=== PATIENT | male | born 1995 | race Caucasian/White ===

== ENCOUNTER 2020-03-15 07:50 | Observation (INO) ==
--- NOTE | 2020-03-14 15:03 | Anesthesiology Consultation ---
Date of Service March 14, 2020 Assessment & Plan (1) Encounter for pre-operative examination: Chart Review Chart Review: Acceptable Risk for Surgery (pending anesthesia evaluation AM of surgery ) and Patient NOT seen in Pre Admission Testing Per nursing assessment 03/14/20, pt resides in [facility]. Did travel to [place] 03/13/20 for small family get together- did social distance and wear mask. Pt's daughter and had negative Covid tests (done for preop purposes) recently. No known Covid positive contacts. No current Covid related symptoms. Pt was add on case for tomorrow- did not have Covid testing- pt can proceed without Covid testing but will need reassessed by anesthesia DOS. Pt will need rule. ORIF right 2nd, 3rd, and 4th toe= Done under GA with LMA #5. No issues noted on anesthesia record History Surgery Operation Date: 03/15/20 08:50 Proposed Procedures p Right Foot Incision Irrigation and Debridement - Vinayak Benitez s Possible Hardward Removal or Revision - Vinayak Benitez Height/Weight Height: 5 ft 10 in Weight: 77.111 kg Allergies Allergy/AdvReac Type Severity Reaction Status Date / Time No Known Allergies Allergy Mild Verified 03/14/20 15:34 Medications Home Medications Medication Instructions Recorded Confirmed Last Taken amoxicillin-pot clavulanate 1 tab PO BID #20 tab 03/13/20 03/14/20 Unknown [Augmentin] buprenorphine-naloxone [Suboxone] 2 - 2.5 film BUCCAL DAILY 03/14/20 03/14/20 Unknown oxycodone-acetaminophen 5 mg-325 1 - 2 tab PO Q6H PRN #20 tab 03/14/20 03/14/20 Unknown mg tablet Past Medical History Medical History Metatarsal fracture 02/15/20- s/p surgical repair Opiate addiction Past Family History Family History Father Diabetes Other Stroke Past Surgical History Surgical History H/O hand surgery RT HAND (BOXER FRACTURE REPAIR) H/O hernia repair INGUINAL History of open reduction and internal fixation (ORIF) procedure 2nd, 3rd, 4th toes (02/24/20) (HARDWARE INFECTION/REASON FOR PRESENT SURGERY) [place] teeth removed Social History Smoking Status: Never smoker tobacco type: cigarettes and e-cigarettes Hx Alcohol Use: Yes Alcohol type: beer alcohol intake frequency: a few times a month substance use type: former substance user and heroin Substance Use Type Other:: OPIATE ADDICT AND IV HEROIN (LAST USED 2 YEARS AGO) Testing Laboratory Results Laboratory Tests 03/13/20 03/13/20 00:02 00:02 WBC 12.54 H Hgb 12.7 L Hct 36.9 L Plt Count 192 Sodium 135 L Potassium 3.8 Chloride 103 Carbon Dioxide 28 BUN 17 Creatinine 0.80 Glucose 100 H
[~2020-03-15 07:50] MED LIST: EPINEPHrine INJ 1 MG/ML AMP ONE; LR 15ML/HR IV SCH; ROPIVACAINE 0.5% 5 MG/ML 30 ML VIAL ONE
[2020-03-15] MEDS ORDERED: LABETALOL HCL IV 5 MG/ML 20ML IV PRN (08:06)
[2020-03-15] MEDS ORDERED: ATROPINE SULFATE 0.1 MG/ML 10ML SYR IV PRN (08:06)
[2020-03-15] MEDS ORDERED: HYDROmorphone INJ 1 MG/ML SYRINGE IV PRN (08:06)
[2020-03-15] MEDS ORDERED: ONDANSETRON INJ 2 MG/ML 2 ML VIAL IV PRN (08:06)
[2020-03-15] MEDS ORDERED: MEPERIDINE HCL 25 MG/ML CARP/VIAL IV PRN (08:06)
[2020-03-15] MEDS ORDERED: ePHEDrine sulfate 50 MG/ML AMP IV PRN (08:06)
[2020-03-15] MEDS ORDERED: PHENYLEPHRINE 100MCG/ML 5ML SYR IV PRN (08:06)
[2020-03-15] MEDS ORDERED: VANCOMYCIN CONSULT ACTIVE PRN ×2 (08:37→17:58)
[2020-03-15] MEDS ORDERED: VANCOMYCIN HCL 1,500 MG in SODIUM CHLORIDE 0.9% 500 ML IV ONE (08:37)
--- NOTE | 2020-03-15 08:37 | History & Physical Bridge Note ---
Date of Service March 15, 2020 History & Physical Bridge Note I have examined the patient, reviewed the History & Physical and in the interval since the performance of the History & Physical I have noted the following changes of clinical significance: no changes noted
[2020-03-15] MEDS ORDERED: MIDAZOLAM HCL 1 MG/ML 2ML VIAL ONE (08:59)
[2020-03-15] MEDS ORDERED: BUPIVACAINE 0.5 % 5 MG/1 ML MPF 30ML VIAL ONE (08:59)
[2020-03-15] MEDS ORDERED: BACITRACIN INJ 50,000 UNIT VIAL ONE (08:59)
[2020-03-15] MEDS ORDERED: PROPOFOL IV EMULSION 10 MG/ML 20 ML VIAL IV ONE (08:59)
[2020-03-15] MEDS ORDERED: fentaNYL citrate 100 MCG/2 ML VIAL ONE ×4 (08:59→10:40)
[2020-03-15] MEDS ORDERED: LIDOCAINE HCL 2% 2 ML VIAL/AMP(20MG/ML) INFIL ONE (08:59)
[2020-03-15] MEDS ORDERED: VANCOMYCIN HCL 1 GM/270 ML BAG ONE (09:39)
[2020-03-15] MEDS ORDERED: ONDANSETRON INJ 2 MG/ML 2 ML VIAL ONE (09:58)
--- NOTE | 2020-03-15 10:26 | Post Operative Brief Note ---
PG Immediate Post Op with CF Date of Surgery March 15, 2020 Pre & Post Diagnosis Operation Date: 03/15/20 08:50 Pre-Op Diagnosis: Cellulitis of Right Foot Post-Op Diagnosis: Cellulitis of Right Foot I identified the patient and participated in the time-out.: Yes Procedure Operation Date: 03/15/20 08:50 Actual Procedures p Right Foot Incision Irrigation and Debridement(Right) - Vinayak Benitez s Right Foot 3rd and 4th Metatarsal Pin Removal(Right) - Vinayak Benitez Surgeon Vinayak Benitez Technology Infusion Specialist Eduardo Pfeiffer PA-C Estimated Blood Loss 5 Findings Consistent with Post-Op Diagnosis Specimens Specimen Description: Microbiology #1- Right forefoot wound Microbiology #2- Right forefoot wound Drains Colon Drain Anesthesia Type General Complications none Disposition Accompanied Patient To Recovery: No Disposition: Recovery Room
--- NOTE | 2020-03-15 10:37 | Operative Report ---
PG Post Operative Report Pre & Post Diagnosis Operation Date: 03/15/20 08:50 Pre-Op Diagnosis: Cellulitis of Right Foot Post-Op Diagnosis: Cellulitis of Right Foot I identified the patient and participated in the time-out.: Yes Procedure Operation Date: 03/15/20 08:50 Actual Procedures p Right Foot Incision Irrigation and Debridement(Right) - Vinayak Benitez s Right Foot 3rd and 4th Metatarsal Pin Removal(Right) - Vinayak Benitez Surgeon Vinayak Benitez Clothes Presser Eduardo Pfeiffer PA-C Estimated Blood Loss 5 Findings Consistent with Post-Op Diagnosis There was purulent material through the fibular side wound on the forefoot. The tibial sided wound was without obvious signs of infection in the fracture site of the second ray did not appear to be involved. Pin was left in place in the second ray. The pins in the third and fourth rays were removed due to obvious infections at fibular sided wound. Specimens Deep swab cultures x2 of the fibular sided wound. Anesthesia Type General Complications none Disposition Accompanied Patient To Recovery: No Disposition: Recovery Room Indications 24-year-old male who developed evidence of infection over his forefoot at approximately 2 to 3 weeks status post open reduction and percutaneous pin fixation of multiple metatarsal neck fractures. He did not respond to outpatient oral antibiotics initiated over the weekend, so he was counseled for the need for irrigation debridement of the deep infection. Discussion of the risks and benefits, as outlined in his clinic note, he was agreeable to proceed and informed consent was obtained in the clinic. Description of Procedure On the day of surgery, the patient was greeted in the preoperative holding area. The informed consent was reviewed and confirmed by myself and the patient. The patient identified the surgical site and was marked by me. The patient was then turned over to anesthesia. She taken the operating placed supine on the OR table. Anesthesia was induced and a 20-minute delay sequence was used for COVID-19 precautions. The right lower extremity was then prepped and draped in the usual sterile fashion. A nonsterile tourniquet was placed proximal to the drapes. Surgical timeout was called by the circulating nurse and verified all present. The buttocks been held until deep cultures were taken. Initiated procedure by using a hemostat to open the dorsal forefoot incisions. There was obvious purulence and drainage from the fibular sided wound. It was opened deeply and exposed and 2 swab cultures were taken. We then began sharp debridement using Metzenbaum scissors and a large curette. The fracture site on the fourth ray was obviously involved. The wound did communicate to the third ray. The wounds did not communicate from the tibial to fibular side. The tibial side wound did not have obvious signs of infection and only minimal drainage. It was thoroughly and sharply irrigated and debrided however the second ray was not exposed. That pin was left in place. The third and fourth ray pins were removed in their entirety. Fluoroscopy was used to confirm maintenance of reduction. In addition, there was no palpable loss of reduction as the pin was removed. Both wounds were irrigated with a total of 6 L of normal saline. 1/2 inch [place] drain cut in half was laid in the wound bed, while 3-0 nylon suture was used to approximate wound edges over the top. The limb was was then dressed with sterile Xeroform, sterile gauze and ABD dressing, contained by web roll followed by Coban. Orthoplast posterior splint was applied with an Emil wrap. Patient tolerated procedure well, was extubated after without complication, and transported to the recovery area in stable condition after 20-minute COVID-19 anesthesia delay. Disposition: He will remain as an inpatient on observation status to get at least 24 hours of parenteral antibiotic coverage for presumed MRSA. We will evaluate him in the morning for potential discharge tomorrow afternoon. He should be nonweightbearing to that extremity. Eduardo Pfeiffer PA-C, was present and essential to the conduction of the case. Specifically, he assisted with positioning, wound retraction, equipment management, and application of sterile dressing and splint. I attest to the content of the Intraoperative Record and any orders documented therein. Any exceptions are noted below.
[2020-03-15] MEDS ORDERED: HYDROmorphone INJ 1 MG/ML SYRINGE ONE (10:40)
[2020-03-15] MEDS ORDERED: MEPERIDINE HCL 25 MG/ML CARP/VIAL ONE (10:40)
[2020-03-15] MEDS: fentaNYL citrate 100 MCG/2 ML VIAL IV PRN ×4 (10:50→11:05)
--- NOTE | 2020-03-15 10:59 | Fluoroscopy Report ---
INTRAOPERATIVE RADIOGRAPHS CLINICAL HISTORY: Right foot hardware removal. Fluoroscopy time: 5 seconds. FINDINGS: 3 spot fluoroscopic views of the right forefoot are correlated with radiographs dated 2019 and intraoperative radiographs dated 02/24/2020. A wire transfixes the second toe extending from t he base of the proximal phalanx to the base of the second metatarsal. There are healing fractures of the second, third, and fourth metatarsal necks. Wires in the third and fourth toes seen previously wilder ve been removed. IMPRESSION: Intraoperative images from hardware removal in the right foot as above. Electronically signed by: Mitch Tovar M.D. 03/15/2020 10:57 AM
--- NOTE | 2020-03-15 11:17 | Anesthesiology Progress Note ---
Date of Service March 15, 2020 Anesthesia Post Procedure Vital Signs Vital Signs: Temp Pulse Pulse Resp BP Pulse Ox 03/15/20 11:15 71 12 143/80 H 96 03/15/20 11:05 72 14 145/78 H 96 03/15/20 10:55 71 16 151/70 H 100 03/15/20 10:45 88 13 149/90 H 100 03/15/20 10:37 36.6 C 100 H 23 130/102 H 100 03/15/20 09:03 92 H 20 140/68 98 03/15/20 08:23 37.1 C 97 H 20 137/83 98 Pain Intensity Right Foot: Pain Intensity: 3 Transfer of Care Handoff Completed per policy Notes Mental Status: alert / awake / arousable Patient Amnestic to Procedure: Yes Nausea / Vomiting: adequately controlled Pain: adequately controlled Airway Patency, RR, SpO2: stable & adequate BP & HR: stable & adequate Hydration State: stable & adequate Anesthetic Complications: no major complications apparent and Pt Satisfied with anesthetic care
[2020-03-15] MEDS ORDERED: ACETAMINOPHEN 1,000 MG/100 ML VIAL IV PRN (12:25)
[2020-03-15] MEDS ORDERED: HYDROmorphone INJ 0.5 MG/0.5 ML SYR IV PRN (12:25)
[2020-03-15] MEDS ORDERED: HYDROmorphone INJ 0.5 MG/0.5 ML SYR ONE (12:35)
[2020-03-15] MEDS ORDERED: KETOROLAC 30 MG/ML VIAL IV PRN (15:08)
[2020-03-15] MEDS: OXYCODONE HCL IR 5 MG TAB (IMMEDIATE RELEASE) PO PRN ×2 (16:31→21:06)
[2020-03-15] MEDS: VANCOMYCIN HCL 1,500 MG in SODIUM CHLORIDE 0.9% 500 ML IV SCH (18:38)
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
[2020-03-15] MEDS: BUPRENORPHINE/NALOXONE 8/2 MG TAB SL SCH (21:05)
[2020-03-16] MEDS: VANCOMYCIN HCL 1,500 MG in SODIUM CHLORIDE 0.9% 500 ML IV SCH ×2 (02:43→09:17)
[2020-03-16] MEDS: OXYCODONE HCL IR 5 MG TAB (IMMEDIATE RELEASE) PO PRN (05:26)
[2020-03-16] MEDS ORDERED: BUPRENORPHINE/NALOXONE 8/2 MG TAB SL SCH (09:00)
[2020-03-16] MEDS: BUPRENORPHINE/NALOXONE 8/2 MG TAB SL SCH (09:17)
[2020-03-16] MEDS ORDERED: VANCOMYCIN TROUGH ONE (18:30)
--- NOTE | 2020-03-17 17:02 | Discharge Summary ---
Date of Service March 17, 2020 Admission HPI Per Admitting Provider 25-year-old male who developed redness and swelling postoperatively after 2 weeks from his open reduction and percutaneous fixation of right 2, 3, 4 metatarsal neck fractures. He did not respond to oral antibiotics started by the call team nor the ER, so he was recommended for surgical debridement. Admission Exam Per Admitting Provider Gen: NAD, appears well, vitals reviewed. HEENT: atraumatic, no abnormalities CV: normal and symmetric peripheral pulses, no significant diffuse extremity edema Chest: No wheeze, non-labored breathing pattern with symmetric chest excursion Skin: no significant diffuse rash Right foot: obvious edema over forefoot and dorsum of foot with erythema advancing from MTP incision sites to ankle joint line. Forefoot is tender and congested. 4th ray pin site with active serosanguinous drainage. Digits maintain <2 CR. Sensation intact to LT with stable exception to dorsum of 3rd digit. FAROM of ankle and subtalar joint. Guarded toe motion. Principal Diagnosis Postsurgical infection, cellulitis right foot Discharge Exam Constitutional WD/WN, vitals as above + well hydrated; no acute distress ENMT external ear and nose normal, oropharynx normal Respiratory normal respiratory effort; no respiratory distress and no labored breathing Cardiovascular Extremities: normal capillary refill; no pedal edema Musculoskeletal Right lower extremity: Splint to right lower extremity clean dry and intact. neurovascular intact with the exception of reduced light touch sensation over the third digit dorsal aspect. Discharge Data Allergies Allergy/AdvReac Type Severity Reaction Status Date / Time No Known Allergies Allergy Mild Verified 03/15/20 08:13 Procedures Performed Operation Date: 03/15/20 08:50 Actual Procedures p Right Foot Incision Irrigation and Debridement(Right) - Vinayak Benitez s Right Foot 3rd and 4th Metatarsal Pin Removal(Right) - Vinayak Benitez Ordered Studies 03/15/20 FL fluoroscopy <1hr Routine FL foot RT 2V Routine 03/15/20 05:00 US - OR guided needle placemen Routine Hospital Course (1) Surgical site infection: Patient was admitted postoperatively after an uncomplicated surgical site irrigation debridement and hardware revision. He was admitted for antibiotic parenteral treatment. Antibiotics were vancomycin which were selected empirically to cover MRSA. He tolerated the antibiotics well. His pain was well controlled with routine pain management. On postoperative day 1 he is found to be stable with regard to his dressing change, pain control and outp atient antibiotic plan. He was discharged on Bactrim double strength with a close follow-up in clinic this week. Total Time Total Time Spent Total Time Spent (In Minutes): 20 Total Time Includes: Examination of the Patient, Discharge Planning and Medication Reconciliation Discharge Plan Discharge Items Patient Disposition: Home - Self-Care Reason For Visit: Cellulitis of Right Foot Discharge Diagnosis: Deep surgical site infection Condition on Discharge: Good Activity: Per Instructions section Non-emergency contact: Surgeon Call non-emergency contact if: you have any medication questions, your pain is not controlled and your temperature is above 101 Follow-up/Referrals: Vinayak Benitez [Surgeon] - Virginie Ackerman PA-C [Primary Care Provider] - Diet: Regular Addtl Attending Provider Instructions: SPLINT/WOUND CARE: You may remove the splint by unraveling the Emil wrap. Maintain the dressing in place the foot in your previously provided fracture boot. Leave your dressing in place and keep the area clean and dry for 3 days. After 3 days, you may remove the wrapped dressing and replaced with clean and dry gauze. Please wait only through the heel on that foot to avoid pressure on the forefoot.. Use your crutches as instructed. If the splint becomes wet, dirty, uncomfortable, or loose, please call the Orthopedic Clinic ([phone]) to arrange to be evaluated in the [facility]. Please call the Ortho Clinic if you have any questions or concerns. If you need to be seen after hours, please report to the Emergency Room. PAIN CONTROL: Elevation is your best friend. Elevate the affected extremity above the level of your heart. Swelling is simply fluid. Elevation will allow the fluid to run down hill, reduce swelling, and decrease pain. The affected extremity should be continuously elevated for the first 2-3 days, with the exception of bathroom, hygiene, etc. You may be prone to swelling for several weeks, or until you return to normal function with your foot/ankle. Medications: 1. Oxycodone (OxyIR) 1-2 tablet(s) orally every 4 hours for pain as needed. Use with Tylenol. Begin tapering OxyIR as soon as possible: reduce from 2 to 1 pills per dose, then spread out the doses over greater time intervals, then try to use only for therapy or for comfort while sleeping. Continue to use regular Tylenol until pain subsides. 2. Tylenol (325mg): 3 tablets every 8 hours orally. Regular dosing of Tylenol is an important part of your baseline pain control. Do not taper Tylenol until you have successfully tapered off of regular OxyIR. Do not take more than 3000mg of Tylenol per day. 3. Suboxone: Continue to take your previously prescribed Suboxone prescription. Please contact your addiction management physicians for any concerns about pain management. WHEN TO CALL. If you develop any of the following symptoms, please contact the [facility] at [phone] or the Emergency room (after hours): Temperature greater than 100.5 taken twice, difficulty breathing, bleeding, fever and chills, incre ased pain unrelieved by pain meds, uncomfortable cast or splint, or any other concerns. Please call the number above to schedule a follow-up appointment for 03/18/2020. Pending Studies at Discharge: No Stand-Alone Forms: My [facility], Opioid Pain Management, Smoking Cessation Medications and DC Order Prescriptions: New sulfamethoxazole-trimethoprim [Bactrim DS] 800-160 mg tablet 1 tab PO BID Qty: 20 RF: 0 Continued oxycodone-acetaminophen [Percocet] 5-325 mg tablet 1 - 2 tab PO Q6H PRN (Reason: pain) Qty: 20 RF: 0 buprenorphine-naloxone [Suboxone] 8-2 mg Film 2 - 2.5 film sublingual DAILY RF: 0 Discontinued amoxicillin-pot clavulanate [Augmentin] 875-125 mg tablet 1 tab PO BID Qty: 20 RF: 0 cephalexin 500 mg capsule 500 mg PO QID RF: 0 Discharge Orders: Discharge Order (Routine); Ordered 03/16/20 Ordered By: Eduardo Galloway/Other Patient Handouts: Sulfamethoxazole Trimethoprim [id number] tablets Admission Data Admit Date/Time: 03/15/20 11:51 Attending Provider: Vinayak Benitez Admit Provider: Vinayak Benitez Primary Care Provider: Virginie Ackerman Other Interventions: Discharge Summary Assessment (RN) Last Done: 03/16/20 09:36 DC Date/Time DO NOT enter until pt leaves facility: 03/16/20 13:12 Coding Level of Care Code 50525 OBS Care - Discharge Diagnoses Surgical site infection T81.49XA
== END 2020-03-16 13:12 | disposition home or self-care (01) ==
LOC: 3E 07:50 → ASU 07:50